=== PATIENT | female | born 1960 | race Caucasian/White ===

== ENCOUNTER 2020-08-27 06:33 | Observation (INO) ==
--- NOTE | 2020-08-15 12:01 | Anesthesiology Consultation ---
Date of Service August 15, 2020 Assessment & Plan (1) Encounter for pre-operative examination: - COVID screening: Per assessment on 08/14: Travel screen negative, no known COVID-19 positive contacts or current COVID-19 related symptoms. Usually wears mask but not always- does social distance. Patient had COVID 06/19/20 ([facility]/PCR report to be scanned into [employer]) > asymptomatic, quarantined at home. Attempting to obtain official report. Patient scheduled for preop COVID test 08/23 ([facility]). - Cardiology office visit (08/13/20): "She denies having any cardiac symptoms and specifically denies any chest pain, chest tightness, chest heaviness.. She tells me she is very active despite her significant right hip discomfort for which is is due to have surgery soon.. Lexiscan EKG- positive for ischemia.. Her Lexiscan nuclear stress test was read as showing a small fixed apical defect, and in the context of her negative history, this is likely to be consistent with normal apical thinning rather than an infarct. Her echocardiogram revealed normal LV and RV systolic function with no obvious wall motion or structural abnormalities. Her EKG does not reveal any evidence of apical infarct.. She has reasonable functional status for age despite her arthritic right hip and I do feel that we should proceed with surgery, excepting the cardiovascular risk involved. In regards to her ventricular ectopy as mentioned in my previous note we should aim for a potassium of at least 4 and a magnesium of 2. The potassium was 3.7 and I note that her magnesium was 1.6. I have again asked her to increase the dose of her intake of potassiumcontaining foods namely citrus fruits and bananas. I have commenced her on magnesium oxide 2. She will obtain an event monitor after her surgery to evaluate the burden of her ectopy." At anesthesiologist discretion AM DOS if repeat potassium and magnesium levels needed from their perspective. Chart Review Chart Review: Acceptable Risk for Surgery and Patient NOT seen in Pre Admission Testing History Surgery Operation Date: 08/27/20 07:15 Proposed Procedures p Right Posterior Total Hip Arthroplasty - Vivek Valerio DO Height/Weight Height: 5 ft 3 in Weight: 72.121 kg Allergies Allergy/AdvReac Type Severity Reaction Status Date / Time No Known Allergies Allergy Verified 08/14/20 07:57 Medications Home Medications Medication Instructions Recorded Confirmed Last Taken amlodipine 5 mg PO QAM 05/17/20 08/14/20 Unknown atenolol-chlorthalidone 1 tab PO QAM 05/17/20 08/14/20 Unknown calcium carbonate [Calcium 600] 600 mg PO QAM 08/14/20 08/14/20 Unknown magnesium oxide 400 mg PO BID 08/14/20 08/14/20 Unknown potassium chloride [Klor-Con M20] 20 meq PO BID 08/14/20 08/14/20 Unknown zinc 50 mg PO QAM 08/14/20 08/14/20 Unknown Past Medical History Medical History History of COVID-19 Dx 06/19/20 ([facility]) > asymptomatic, quarantined at home Hypertension Osteoarthritis Past Family History Family History Other No known health problems Past Surgical History Surgical History History of colonoscopy Hx of left knee surgery ACL repair Hx of tonsillectomy Social History Smoking Status: Never smoker Do You Dip or Chew Tobacco: No Hx Alcohol Use: Yes Alcohol type: beer and wine alcohol intake frequency: a few times a week Hx Substance Use: No Testing Laboratory Results 08/08/20 WBC 8.72 H/H 14.6/45.1 PLATELETS 297 SODIUM 139 POTASSIUM 3.7 CHLORIDE 104 CO2 28.0 BUN 18.0 CREATININE 0.79 GLUCOSE 112 PT 13.1 PTT 31.8 INR 1.15 UA negative HGBA1C 5.8% TYPE AND SCREEN O+ Ab- Electrocardiogram Date: 05/31/20 Normal sinus rhythm with sinus arrhythmia at [address] abnormality. Chest X-Ray Date: 05/31/20 Findings: + NAD Echocardiogram Date: 07/31/20 EF 55 to 60%. No significant valvular disease. Stress Test Date: 07/31/20 Lexiscan Cardiolite myocardial perfusion imaging demonstrates a small fixed apical filling defect consistent with prior infarct versus apical thinning. Myocardial perfusion imaging is negative for ischemia. LVEF 62%. Lexiscan stress EKG is positive for ischemia with approximately 1.[address] depression in the inferior lateral leads. There is frequent ventricular ectopy seen.
--- NOTE | 2020-08-25 12:32 | History & Physical Report ---
Date of Service August 27, 2020 Assessment & Plan (1) Degenerative joint disease of right hip: I have indicated the patient for right total hip replacement. The risks, benefits and complications of surgery were explained to the patient which include but not limited to infection, acute blood loss, DVT/PE, injury to nerves, vessels, bone, soft tissue, arthrofibrosis, chronic pain, failure of the prosthesis, hip dislocation, leg length discrepancy, need for additional surgery, cardiac and pulmonary events and . The patient wished to proceed with surgery and informed consent was obtained at this time. We will plan for 81mg ASA BID post-operatively for DVT prophylaxis. Upon discharge the patient will be discharged home with home health services. Appropriate clearances by PCP were obtained. History of Present Illness Chief Complaint: Right hip pain/DJD Primary Care Provider: Deuce Herrera The patient is a 59 year old female who presents with complaints of severe right hip pain and DJD. The patient has failed outpatient conservative treatments to this point which included activity modification, NSAIDs and a home exercise/walking program. The patient's pain and limited function have progressed to the point where they severely hinder their activities of daily living and they no longer tolerate exercise programs. They are requesting to proceed with total hip replacement surgery. Allergies Allergy/AdvReac Type Severity Reaction Status Date / Time No Known Allergies Allergy Verified 08/27/20 06:57 Home Medications Medication Instructions Recorded Confirmed Type amlodipine 5 mg PO QAM 05/17/20 08/27/20 History atenolol-chlorthalidone [Tenoretic 1 tab PO QAM 05/17/20 08/27/20 History 100] calcium carbonate [Calcium 600] 600 mg PO QAM 08/14/20 08/27/20 History magnesium oxide 400 mg PO BID 08/14/20 08/27/20 History potassium chloride [Klor-Con M20] 20 meq PO BID 08/14/20 08/27/20 History zinc 50 mg PO QAM 08/14/20 08/27/20 History Past Med/Surg History Medical History History of COVID-19 Dx 06/19/20 ([facility]) > asymptomatic, quarantined at home Hypertension Osteoarthritis Surgical History History of colonoscopy Hx of left knee surgery ACL repair Hx of tonsillectomy Family History Other No known health problems Social History Smoking Status: Never smoker Second Hand Exposure: No; Do You Dip or Chew Tobacco: No; Hx Alcohol Use: Yes Alcohol type: beer and wine Hx Substance Use: No Preferred Language: Yakut Communication Ability: Effective Seamer Panty Hose Required: No Beliefs That Will Affect Care: None Current Living Situation: Spouse Other Information That Helps Us Care for You: No Feels Safe at Home: Yes Safety Concerns: Feels Safe At This Time Assistive Devices: Glasses Review of Systems Review of Systems: All systems reviewed & are unremarkable except as noted in HPI & below Constitutional: as per Subjective / HPI Physical Exam Physical Exam: RLE NVSI +EHL/FHL/TA/GS SILT grossly, +2 DP pulse, compartments soft NT, limited painful ROM of the hip, antalgic gait. Constitutional: WD/WN, vitals as above Eyes: PERRL, conjunctivae normal, anicteric sclerae ENMT: external ear and nose normal, oropharynx normal Neck: trachea midline, no thyromegaly Respiratory: normal respiratory effort, lungs clear to auscultation Cardiovascular: RRR, no murmur, no edema Gastrointestinal (Abdomen): normal bowel sounds, soft, nontender, no hepatosplenomegaly Musculoskeletal: no cyanosis or clubbing, extremities motor strength 5/5 Skin: no rashes, warm and dry Neurologic: patellar DTR's 2+ bilat, sensation intact Psychiatric: A+Ox3, euthymic affect Lymphatic: no cervical or axillary lymphadenopathy Results & Data Results & Data ([facility]) Diagnostic Findings Multiple views of the hip demonstrates severe DJD with complete loss of the joint space. +osteophytes, +sclerosis, +subchondral cysts.
[~2020-08-27 06:33] MED LIST: ACETAMINOPHEN 500 MG TAB PO SCH; BUPIVACAINE 0.5 % 5 MG/1 ML PF 10ML VIAL ONE; CeleBREX 200 MG CAP PO SCH; FAMOTIDINE 20 MG TAB PO SCH; LR 500ML BOLUS, THEN 15ML/HR IV SCH; METOCLOPRAMIDE HCL 10 MG TABLET PO SCH; ROPIVACAINE 0.5% HCL/PF 150 MG, BUPIVACAINE 0.75% MPF 20 ML, EPINEPHrine 30MG/30ML (OR ... INFIL SCH; TRANEXAMIC ACID 1,000 MG **IV Intra-op IV SCH; TRANEXAMIC ACID 1,000 MG **IV Pre-op IV SCH; ceFAZolin 2000MG 2,000 MG/15 ML SYR IV SCH; dexAMETHasone 4 MG TAB PO SCH
[2020-08-27] MEDS ORDERED: MIDAZOLAM HCL 1 MG/ML 2ML VIAL ONE ×2 (08:06→09:07)
[2020-08-27] MEDS ORDERED: KETAMINE 50 MG/5 ML SYRINGE ONE (08:07)
[2020-08-27] MEDS ORDERED: ONDANSETRON INJ 2 MG/ML 2 ML VIAL IV PRN ×2 (08:42→13:03)
[2020-08-27] MEDS ORDERED: ePHEDrine sulfate 50 MG/ML AMP IV PRN (08:42)
[2020-08-27] MEDS ORDERED: ATROPINE SULFATE 0.1 MG/ML 10ML SYR IV PRN (08:42)
[2020-08-27] MEDS ORDERED: HYDROmorphone INJ 1 MG/ML SYRINGE IV PRN (08:42)
[2020-08-27] MEDS ORDERED: ROPIVACAINE 0.5% HCL/PF 150 MG, BUPIVACAINE 0.75% MPF 20 ML, EPINEPHrine 0.15 MG, Ketor... INFIL STA (09:36)
--- NOTE | 2020-08-27 09:36 | History & Physical Bridge Note ---
Date of Service August 27, 2020 History & Physical Bridge Note I have examined the patient, reviewed the History & Physical and in the interval since the performance of the History & Physical I have noted the following changes of clinical significance: no changes noted
[2020-08-27] MEDS ORDERED: KETOROLAC TROMETHAMINE 15 MG/ML VIAL IV PRN (09:44)
[2020-08-27] MEDS ORDERED: ORTHO JOINT ANESTHETIC ONE (10:02)
[2020-08-27] MEDS ORDERED: ONDANSETRON INJ 2 MG/ML 2 ML VIAL ONE (10:27)
[2020-08-27] MEDS ORDERED: LIDOCAINE 2% 2 ML VIAL/AMP(20MG/ML) INFIL ONE (10:27)
[2020-08-27] MEDS ORDERED: GLYCOPYRROLATE 0.2 MG/ML VIAL ONE (10:27)
[2020-08-27] MEDS ORDERED: PROPOFOL IV EMULSION 10 MG/ML 20 ML VIAL IV ONE (10:27)
[2020-08-27] MEDS ORDERED: ePHEDrine sulfate 50 MG/ML SYR ONE (10:48)
--- NOTE | 2020-08-27 11:45 | Post Operative Brief Note ---
Immediate Post Op Note v1 Date of Surgery August 27, 2020 Pre & Post Diagnosis Operation Date: 08/27/20 09:35 Pre-Op Diagnosis: Unilateral Primary Osteoarthritis, Right Hip Post-Op Diagnosis: Unilateral Primary Osteoarthritis, Right Hip I identified the patient and participated in the time-out.: Yes Procedure Operation Date: 08/27/20 09:35 Actual Procedures p Right Posterior Total Hip Arthroplasty(Right) - Vivek Valerio DO Surgeon Vivek Valerio DO Operations Intelligence Superintendent Alfredo Box Estimated Blood Loss 185 Findings Consistent with Post-Op Diagnosis Fluids See anesthesia report Specimens Femoral head Capsular cyst Anesthesia Type Spinal MAC Complications none Disposition Disposition: Recovery Room Overlapping Procedure I was present for: the critical portions of procedure. I was immediately available: during the entire case. Back up surgeon: was not required during procedure.
--- NOTE | 2020-08-27 11:50 | Operative Report ---
Post Operative Report Pre & Post Diagnosis Operation Date: 08/27/20 09:35 Pre-Op Diagnosis: Unilateral Primary Osteoarthritis, Right Hip Post-Op Diagnosis: Unilateral Primary Osteoarthritis, Right Hip I identified the patient and participated in the time-out.: Yes Procedure Operation Date: 08/27/20 09:35 Actual Procedures p Right Posterior Total Hip Arthroplasty(Right) - Vivek Valerio DO Surgeon Vivek Valerio DO [employer] Cleaner Alfredo Box Estimated Blood Loss 185 Findings Consistent with Post-Op Diagnosis Fluids See anesthesia report Specimens Femoral head capsular cyst Anesthesia Type Spinal MAC Complications none Disposition Disposition: Recovery Room Indications The patient is a 59-year-old female who presents with severe progressive right hip DJD who has failed outpatient conservative treatments. I indicated the patient for a total hip replacement and the risks and benefits were explained in detail which included but not limited to infection, bleeding, blood clot, damage to surrounding bone, nerves, vessels, soft tissue, hip dislocation, failure of the prosthesis, leg length discrepancy, need for additional surgery and . The patient agreed to proceed with replacement of the hip and informed consent was obtained. Appropriate clearances were obtained. Description of Procedure COMPONENTS USED: [employer] hip system: Acetabulum size 50 osteo-Ti G7, femur size 9 reduced extended offset, femoral head 36+0, liner 50x36, acetabular screw 25 mm x 1. Following induction of adequate spinal anesthesia, the patient was transferred to the OR table and placed in lateral decubitus position with left hip down. The right hip was prepped and draped in the typical sterile fashion. A timeout was performed, patient identified and site frank confirmed. Appropriate antibiotics were given. A standard posterolateral/Rocco-Langenbeck incision was made. Subcutaneous tissue was sharply dissected. Electrocautery was utilized for hemostasis. The fascia was incised throughout the length of the wound and retracted with the Charnley retractor. The bursa was taken down and the short external rotators were identified. There was a large fluid-filled cystic-appearing mass measuring 4 cm x 3 cm extending posterior to the greater trochanter from the insertion of the external rotators. Time was spent dissecting out this cyst, it would appear that it extended from the capsule. When removed from the capsule a serous fluid drained from inside the cyst, the cystic wall was sent for further identification with pathology. The piriformis was tagged with #1 Vicryl. The short external rotators and capsule were divided from the posterior aspect of the femur using electrocautery. The posterior capsule was tagged with #1 Vicryl. Both external rotators and posterior capsule were swept posterior and protected, along with protecting the sciatic nerve. The hip was dislocated by flexion and internally rotation in a controlled manner and exposure of the femoral neck was gained with an old-style Hohmann and a blunt cobra retractor. A femoral cutting guide was utilized for making the appropriate level femoral neck cut with reciprocating saw. The femoral head was removed, measured and reserved on the back table. Next, attention was turned to the acetabulum. A posterior and anterior offset retractor was placed to gain adequate exposure. Acetabular labrum as well as posterior capsule elements were removed using electrocautery and forceps. Fovea centralis was cleared of all soft tissue. Sequential reaming was performed starting at 44 mm and carried up to a 49 mm and decision was made to proceed with impaction of a 50 mm G7 Osteo- Ti cup. This was impacted and held using a single 25 mm acetabular screw. The trial acetabular liner was placed at this time. Next, attention was turned to the proximal femur where a Bovie and pickup was used to further clear short external rotators from their insertion on the femur. Box osteotome and canal finder was used to gain access to the femoral canal and the lateral reamer on power was used to further open the proximal lateral canal. Sequentially rasping was carried up to a 9 which gave good fit and fill of the proximal femur. A trial reduction was carried out with a reduced extended offset femoral neck component a 36+0 mm femoral head. The trial reduction was stable in all degrees of rotation with no [id number] impingement. The hip was dislocated, trial components were removed and access to the acetabulum was re-established. The trial liner was removed and the cup was irrigated to ensure all debris was removed. The final acetabular liner was inserted and properly seated in the cup. Access to the femur was once more gained and the size 9 femoral stem with reduced extended offset was impacted into position. The hip was once more assessed with the 36+0 mm femoral head. Stability was accessed and found to be excellent with equal leg lengths. The hip was dislocated for the last time and the final 36+0 ceramic femoral head was impacted in place and the hip was reduced. Range of motion was checked once again and found to be stable. A Betadine soak was performed. After 3 minutes, the hip was once more irrigated with copious sterile saline solution with bacitracin. The mickie-incisional soft tissue was injected utilizing [place] ortho mix which includes a combination of Ropivicaine 0.5% 150mg, Bupivicaine 0.5%/Epinephrine 1:200,000 30ml, Toradol 30mg, Dexamethasone 4mg, Ketamine 10mg, Clonidine 100mcg and NSS 30ml Orthomix solution. The piriformis, external rotators and capsule were repaired to the greater trochanter through bone tunnels using #5 FiberWire. The fascia was closed using #1 Vicryl, subcutaneous tissue was closed using 2-0 Vicryl, and skin was closed with benton and a sterile dry dressing was applied which included vikki incisional VAC. The patient tolerated the procedure well and was transported to PACU in stable condition. Due to the complex nature of the procedure, the entire surgery was performed with the operational assistance of Alfredo Box PA-C. The assistant director of plant operations, under direct supervision, was involved in the actual performance of all aspects of the surgical procedure including patient positioning, hemostasis, tissue retraction, instrument management and wound closure. I attest to the content of the Intraoperative Record and any orders documented therein. Any exceptions are noted below.
--- NOTE | 2020-08-27 12:34 | Orthopedic Progress Note ---
Date of Service August 27, 2020 Assessment & Plan (1) Degenerative joint disease of right hip: Status post right total hip arthroplasty -Ancef x24 -DVT prophylaxis: SCDs, teds, 81mg ASA BID -Weight-bear as tolerates right lower extremity -PT/OT -Posterior hip precautions -Postoperative x-ray demonstrates a well aligned well fixed prothesis without fracture or dislocation -A.m. labs -DC planning Subjective Post Operative Progress Note Patient seen in PACU, comfortable, denies complaints, pain well controlled, no acute issues. Review of Systems Review of Systems: All systems reviewed & are unremarkable except as noted in HPI & below Constitutional: as per Subjective / HPI Physical Exam Physical Exam: Physical exam right lower extremity limited secondary to spinal anesthesia, +2 dorsalis pedis pulse, compartment soft and compressible, dressing clean dry and intact. Constitutional: WD/WN, vitals as above Results & Data ([facility]) Vital Signs (Past 12 Hours) Vital Signs Temp Pulse Pulse Resp BP Pulse Ox 08/27/20 12:25 36.4 C L 65 14 114/67 97 08/27/20 12:15 59 L 14 115/65 100 08/27/20 12:05 36.5 C 63 18 115/66 96 08/27/20 08:22 36.7 C 51 L 18 154/79 H 95 08/27/20 07:04 36.9 C 68 18 162/93 H 96
--- NOTE | 2020-08-27 12:36 | Anesthesiology Progress Note ---
Date of Service August 27, 2020 Anesthesia Post Procedure Vital Signs Vital Signs: Temp Pulse Pulse Resp BP Pulse Ox 08/27/20 12:35 67 14 116/69 100 08/27/20 12:25 36.4 C L 65 14 114/67 97 08/27/20 12:15 59 L 14 115/65 100 08/27/20 12:05 36.5 C 63 18 115/66 96 08/27/20 08:22 36.7 C 51 L 18 154/79 H 95 08/27/20 07:04 36.9 C 68 18 162/93 H 96 Pain Intensity Right Hip: Pain Intensity: 0 Transfer of Care Handoff Completed per policy Notes Mental Status: alert / awake / arousable Patient Amnestic to Procedure: Yes Nausea / Vomiting: adequately controlled Pain: adequately controlled Airway Patency, RR, SpO2: stable & adequate BP & HR: stable & adequate Hydration State: stable & adequate Anesthetic Complications: no major complications apparent
--- NOTE | 2020-08-27 13:02 | XRay Report ---
XR hip 1V RT w pelvis CLINICAL HISTORY: Postop hip arthroplasty COMPARISON: None. DISCUSSION: There are postsurgical changes of a total right hip arthroplasty. There is gas present wi thin the soft tissues consistent with recent surgery. There are overlying skin benton. There is no d islocation. IMPRESSION: Postsurgical changes of a total right hip arthroplasty ACT 112: Negative or not required by law. Electronically signed by: Jer Fitch M.D. 08/27/2020 1:00 PM
[2020-08-27] MEDS ORDERED: MAGNESIUM HYDROXIDE SUSP 30 ML UDC PO PRN (13:03)
[2020-08-27] MEDS ORDERED: NALOXONE HCL 0.4 MG/1 ML VIAL/CARP IV PRN (13:03)
[2020-08-27] MEDS ORDERED: diphenhydrAMINE Capsule 25 MG CAP PO PRN (13:03)
[2020-08-27] MEDS ORDERED: METOCLOPRAMIDE HCL INJ 5 MG/ML 2 ML VIAL IV PRN (13:03)
[2020-08-27] MEDS ORDERED: HYDROmorphone INJ 0.5 MG/0.5 ML SYR IV PRN (13:03)
[2020-08-27] MEDS ORDERED: bisacodyL 10 MG SUPP PR PRN (13:03)
[2020-08-27] MEDS ORDERED: oxyCODONE HCL IR 5 MG TAB (IMMEDIATE RELEASE) PO PRN (13:03)
[2020-08-27] MEDS: SODIUM CHLORIDE 0.9% 1000ML 1,000 ML IV SCH (14:15)
[2020-08-27] MEDS: KETOROLAC TROMETHAMINE 15 MG/ML VIAL IV SCH ×2 (14:16→20:00)
[2020-08-27] MEDS: ceFAZolin 2000MG 2,000 MG/15 ML SYR IV SCH (17:26)
[2020-08-27] MEDS: DOCUSATE SODIUM 100 MG CAP PO SCH (20:49)
[2020-08-27] MEDS: POTASSIUM CHLORIDE CRTAB 20 MEQ TABCR PO SCH (20:50)
[2020-08-27] MEDS ORDERED: SENNA 8.6 MG TAB PO SCH (21:00)
[2020-08-27] MEDS: ACETAMINOPHEN 500 MG TAB PO SCH (22:35)
[2020-08-28] MEDS: SODIUM CHLORIDE 0.9% 1000ML 1,000 ML IV SCH (00:56)
[2020-08-28] MEDS: KETOROLAC TROMETHAMINE 15 MG/ML VIAL IV SCH ×2 (02:16→08:29)
[2020-08-28] MEDS: ceFAZolin 2000MG 2,000 MG/15 ML SYR IV SCH (02:16)
[2020-08-28] MEDS: ACETAMINOPHEN 500 MG TAB PO SCH ×2 (05:43→14:06)
[2020-08-28 06:09] LABS: Basophils # (auto) 0.01 K/uL (0-0.2); Basophils % (auto) 0.1 %; Hematocrit (blood only) 37.7 % (37-47); Hemoglobin 12.8 g/dL (12.0-16.0); Immature Granulocytes # (auto) 0.03 K/uL (0.00-0.02); Immature Granulocytes % (auto) 0.2 %; Lymphocytes % (auto) 8.8 %; Mean Corpuscular Hemoglobin 29.2 pg (25-34); Mean Corpuscular Volume 86.1 fL (80-100); Monocytes % (auto) 8.8 %; Neutrophils # (auto) 12.21 K/uL (1.4-6.5); Neutrophils % (auto) 82.1 %; Platelet Count 260 K/uL (130-400); RDW Coefficient of Variation 13.6 % (11.5-14.5); RDW Standard Deviation 43.3 fL (36.4-46.3); Red Blood Count 4.38 M/uL (4.2-5.4); White Blood Count 14.85 K/uL (4.8-10.8)
[2020-08-28 06:27] LABS: BUN Creatinine Ratio 29.4 (10-20); Calcium 8.7 mg/dl (8.5-10.1); Creatinine Clr Calc Pharmacy 75.8 ml/min; Est GFR (African American) 98.1 ml/min; Est GFR (Non-African American) 84.7 ml/min; Potassium 3.9 mmol/L (3.5-5.1)
[2020-08-28] MEDS: DOCUSATE SODIUM 100 MG CAP PO SCH (08:30)
[2020-08-28] MEDS: POTASSIUM CHLORIDE CRTAB 20 MEQ TABCR PO SCH (08:30)
[2020-08-28] MEDS ORDERED: amLODIPine BESYLATE 5 MG TAB PO SCH (09:00)
[2020-08-28] MEDS ORDERED: ATENOLOL 50 MG TABLET PO SCH (09:00)
[2020-08-28] MEDS ORDERED: ZINC SULFATE 220 MG CAPSULE PO SCH (09:00)
[2020-08-28] MEDS ORDERED: MULTIVITAMIN TAB PO SCH (09:00)
[2020-08-28] MEDS ORDERED: CHLORTHALIDONE 25 MG TAB PO SCH (09:00)
[2020-08-28] MEDS ORDERED: ATENOLOL CHLORTHALIDONE PO SCH (09:00)
[2020-08-28] MEDS ORDERED: ASPIRIN 81 MG ECTAB PO SCH (09:00)
--- NOTE | 2020-08-28 09:14 | Orthopedic Progress Note ---
Date of Service August 28, 2020 Assessment & Plan (1) Degenerative joint disease of right hip: Status post right total hip arthroplasty POD#1 -Ancef x24 -DVT prophylaxis: SCDs, teds, 81mg ASA BID -Weight-bear as tolerates right lower extremity -PT/OT -Posterior hip precautions -Postoperative x-ray demonstrates a well aligned well fixed prothesis without fracture or dislocation -A.m. labs - as above, hgb 12.8 -DC planning - home with Admission and Anticipated Discharge Date Admission Date: August 27, 2020 Subjective Post Operative Progress Note Patient seen sitting up at side of bed, comfortable, denies complaints, pain well controlled, no acute issues. Denies F/C/N/V/SOB/CP. Review of Systems Review of Systems: All systems reviewed & are unremarkable except as noted in HPI & below Constitutional: as per Subjective / HPI Physical Exam Physical Exam: RLE NVSI +EHL/FHL/TA/GS SILT grossly, +2 DP pulse, compartments soft NT, dressing cdi. Constitutional: WD/WN, vitals as above Results & Data ([facility]) Vital Signs (Past 12 Hours) Vital Signs Temp Pulse Resp BP BP Pulse Ox 08/28/20 07:13 36.4 C L 54 L 16 119/66 96 08/28/20 02:17 36.7 C 59 L 16 157/84 H 96 08/27/20 22:08 36.5 C 55 L 16 127/79 92 Laboratory Results 08/28/20 08/28/20 Range/Units 05:37 05:37 WBC 14.85 H (4.8-10.8) K/uL RBC 4.38 (4.2-5.4) M/uL Hgb 12.8 (12.0-16.0) g/dL Hct 37.7 (37-47) % MCV 86.1 (80-100) fL MCH 29.2 (25-34) pg MCHC 34.0 (32-36) g/dL RDW Std Deviation 43.3 (36.4-46.3) fL RDW Coeff of Courtney 13.6 (11.5-14.5) % Plt Count 260 (130-400) K/uL MPV 12.0 H (7.4-10.4) fL Immature Gran % (Auto) 0.2 % Neut % (Auto) 82.1 % Lymph % (Auto) 8.8 % [place] % (Auto) 8.8 % Eos % (Auto) 0.0 % Baso % (Auto) 0.1 % Neut # (Auto) 12.21 H (1.4-6.5) K/uL Lymph # (Auto) 1.30 (1.2-3.4) K/uL [place] # (Auto) 1.30 H (0.11-0.59) K/uL Eos # (Auto) 0.00 (0-0.5) K/uL Baso # (Auto) 0.01 (0-0.2) K/uL Immature Gran # (Auto) 0.03 H (0.00-0.02) K/uL Sodium 137 (136-145) mmol/L Potassium 3.9 (3.5-5.1) mmol/L Chloride 107 (98-107) mmol/L Carbon Dioxide 27 (21-32) mmol/L Anion Gap 3.0 (3-11) BUN 22 H (7-18) mg/dl Creatinine 0.76 (0.6-1.2) mg/dl Est Cr Clr Drug Dosing 75.8 ml/min Est GFR ( Amer) 98.1 ml/min Est GFR (Non-Af Amer) 84.7 ml/min BUN/Creatinine Ratio 29.4 H (10-20) Glucose 124 H (70-99) mg/dl Calcium 8.7 (8.5-10.1) mg/dl
[2020-08-28] MEDS ORDERED: CeleBREX 200 MG CAP PO SCH (21:00)
--- NOTE | 2020-08-28 22:46 | Discharge Summary ---
Date of Service August 28, 2020 Admission HPI Per Admitting Provider The patient is a 59 year old female who presents with complaints of severe right hip pain and DJD. The patient has failed outpatient conservative treatments to this point which included activity modification, NSAIDs and a home exercise/walking program. The patient's pain and limited function have progressed to the point where they severely hinder their activities of daily living and they no longer tolerate exercise programs. They are requesting to proceed with total hip replacement surgery. Principal Diagnosis Right total hip replacement Discharge Exam RLE NVSI +EHL/FHL/TA/GS SILT grossly, +2 DP pulse, compartments soft NT, dressing cdi. Constitutional WD/WN, vitals as above Discharge Data Allergies Allergy/AdvReac Type Severity Reaction Status Date / Time No Known Allergies Allergy Verified 08/27/20 06:57 Procedures Performed Operation Date: 08/27/20 09:35 Actual Procedures p Right Posterior Total Hip Arthroplasty(Right) - Vivek Valerio DO Hospital Course (1) Degenerative joint disease of right hip: Hospital Course: On 08/27/20 the patient was taken to the operating room, adequate anesthesia administered and underwent a right total hip arthroplasty. The patient tolerated the procedure well and was taken to the PACU in stable condition. Post-operatively the patient was started on a DVT ppx medication and given appropriate IV antibiotics. Consults were placed to physical therapy, occupational therapy and case management. On POD#1, the patient did well overnight and their pain was well controlled. Labs were drawn and the Hgb was 12.8. The patient progressed well with PT. The patients hospital stay was relatively uneventful and they were deemed stable by the orthopedic team and consultants to be discharged home with on 08/28/20. Discharge Instructions: Upon discharge the patient may weight bear as tolerates through their operative extremity. They were instructed to keep the incision clean and dry at all times. The patient may shower but should not submerge the incision, avoid bathing, pools and hot tubs. The patient was given a script for pain medication and should take as instructed. The patient was given a script for DVT ppx 81mg ASA BID and should take as directed. The patient was instructed to not drive or travel for long distances until cleared to do so. If the patient develops any symptoms of fevers, chills, nausea, vomiting, increased redness, swelling, pain or drainage from the surgical site, they should notify the office and/or proceed to the nearest emergency room. The patient should follow up in 10-14 days after surgery for their routine post-operative follow-up appointment and should call the office, to confirm the date and time. Status post right total hip arthroplasty POD#1 -Ancef x24 -DVT prophylaxis: SCDs, teds, 81mg ASA BID -Weight-bear as tolerates right lower extremity -PT/OT -Posterior hip precautions -Postoperative x-ray demonstrates a well aligned well fixed prothesis without fracture or dislocation -A.m. labs - as above, hgb 12.8 -DC planning - home with HH Total Time Total Time Spent Total Time Spent (In Minutes): 30 Discharge Plan Discharge Items Patient Disposition: Home - Home Health Services Reason For Visit: Unilateral Primary Osteoarthritis, Right Hip Discharge Diagnosis: Right total hip replacement Condition on Discharge: Good Activity: Per Instructions section Lifting: Wait until after follow-up appointment Bathing: Keep incision dry Bathing Comment: No bathing, pools or hot tubs. Sexual Activity: Wait until after follow-up appointment Exercise/Sports: Wait until after follow-up appointment Driving/Machine Use: No driving. Weightbearing: Full weightbearing Non-emergency contact: Primary Care Provider and Surgeon Call non-emergency contact if: you have any medication questions, your symptoms worsen, your pain is not controlled, your pain is worsening, your pain is unusual for you, your pain is concerning for you, you have a fever, your temperature is above 101, your wound has increased redness, your wound has increased drainage and your wound pain has increased Follow-up/Referrals: Deuce Herrera M.D. [Primary Care Provider] - Diet: Regular Addtl Attending Provider Instructions: ACTIVITY RECOMMENDATIONS: SELF CARE INSTRUCTIONS AFTER TOTAL HIP REPLACEMENT Until the incision and soft tissues around your hip have healed, there is a possibility that the hip prosthesis could dislocate. A. Observe the following precautions to prevent dislocation: 1. Don't bend your hip greater than 90 degrees. 2. Avoid crossing your legs or ankles while standing or lying. 3. Sit with your feet placed 6 inches apart. 4. When sitting, keep your knees below your hips. Sit on a firm surface, avoid deep, soft chairs and couches. Use an elevated toilet seat in the bathroom. 5. Don't bend over at the waist. Use a long handled shoehorn and a sock aid to help you put on your shoes and socks. A md pediatric allergist can help you picked edge sewing machine operator objects that are too high or too low to reach. 6. Keep car riding to a minimum for at least one month after surgery. B. Your balance may be shaky for a while. Use crutches or a walker until directed by your doctor. C. Use hand rails when walking on stairs. D. Wear low heeled shoes with non-slip soles. E. Be sure that your floors are free of things that could trip you - throw rugs, electrical cords, small objects. Avoid wet and waxed floors, especially with crutches and canes. F. Try to walk several times a day with rest periods between. G. Continue with all the exercises taught to you in the hospital. Again, make walking a part of your daily routine. SPECIAL CARE INSTRUCTIONS: VERY IMPORTANT TO READ AND REVIEW A. You may still be at risk for phlebitis and blood clots. 1. Wear surgical stockings (CORRIE hose) for 2 weeks after surgery to improve circulation and reduce swelling. 2. Take Aspirin 81mg twice daily for 4 weeks or as directed by your doctor. This is your blood thinner. 3. High risk patients may be prescribed a stronger blood thinner if necessary. 4. If you are on Coumadin normally, your family doctor/carpentry professional should monitor your blood work. Expect a phone call the day of or the day after bloodwork is drawn to adjust your dosage. B. You must take antibiotics before having dental work, bladder, bowel and other surgery. Your doctor will provide you with a permanent card to carry describing precautions. C. Call [facility] if you have a fever, redness or swelling around the incision, cloudy drainage from incision, or sudden increase in pain in your hip, not relieved by your regular pain medication. D. Please call the office at if you have any concerns or questions about your operation or recovery. * YOU MAY SHOWER, NO TUB BATHS UNTIL CLEARED BY YOUR DOCTOR. * WEAR CORRIE HOSE 20 HOURS PER DAY FOR 2 WEEKS. * YOU SHOULD USE A WALKER OR CRUTCHES FOR 2-4 WEEKS. THIS WILL HELP PREVENT STRAIN ON YOUR HIP MUSCLE AND ALLOW IT TO HEAL PROPERLY. YOU MAY WEAN TO A CANE TOLERATED. * MOST PATIENTS WILL HAVE HOME NURSING FOR THERAPY. IF YOU DECIDE TO DO OUTPATIENT PHYSICAL THERAPY, PLEASE SCHEDULE THIS 3 TIMES PER WEEK. *AMBER incisional vac is a special dressing covering your incision. This dressing provides a sterile dry environment while you are healing. The dressing is to be left in place for 7 days post-operatively. Your home nurse or surgeon will remove. If you develop any redness or blisters or have any questions notify your surgeon immediately. FOLLOW UP VISIT: If appointment is not already scheduled: Please call [facility] to make a follow-up appointment for 2 weeks after your surgery at . Pending Studies at Discharge: No Stand-Alone Forms: My [facility] [employer], Opioid Pain Management, Smoking Cessation Medications and DC Order Prescriptions: New acetaminophen [Tylenol Extra Strength] 500 mg Tablet 1,000 mg PO Q8 PRN (Reason: fever or pain) Qty: 90 RF: 0 celecoxib [Celebrex] 200 mg Capsule 200 mg PO BID PRN (Reason: pain/inflammation) Qty: 30 RF: 0 aspirin 81 mg Tablet,Delayed Release (Dr/Ec) 81 mg PO BID Qty: 56 RF: 0 oxycodone 5 mg Tablet 5 mg PO Q6H MDD 30 PRN (Reason: pain) Qty: 30 RF: 0 sennosides [Senokot] 8.6 mg Tablet 17.2 mg PO HS PRN (Reason: constipation) Qty: 30 RF: 0 Continued atenolol-chlorthalidone [Tenoretic 100] 100-25 mg Tablet 1 tab PO QAM RF: 0 amlodipine 5 mg Tablet 5 mg PO QAM RF: 0 potassium chloride [Klor-Con M20] 20 mEq Tablet,Er Particles/Crystals 20 meq PO BID RF: 0 magnesium oxide 400 mg magnesium Capsule 400 mg PO BID RF: 0 calcium carbonate [Calcium 600] 600 mg calcium (1,500 mg) Tablet 600 mg PO QAM RF: 0 zinc 50 mg Tablet 50 mg PO QAM RF: 0 Discharge Orders: Discharge Order (Routine); Ordered 08/28/20 Ordered By: Alfredo Box Admission Data Admit Date/Time: 08/27/20 12:13 Attending Provider: Vivek Valerio Admit Provider: Vivek Valerio Primary Care Provider: Deuce Herrera Other Interventions: Discharge Summary Assessment (RN) Last Done: 08/28/20 13:20
== END 2020-08-28 14:22 | disposition home health service (06) ==
LOC: 3E 06:33 → ASU 06:33